=== PATIENT | male | born 1970 | race Caucasian/White ===

== ENCOUNTER 2019-08-28 08:42 | Emergency (ER) | payer OTHER ==
[~2019-08-28] VITALS: Ht 180.3 cm; Wt 100.0 kg
[~2019-08-28 08:42] MED LIST: IBUP-1114 PO
[2019-08-28] MEDS ORDERED: PANTOPRAZOLE 40MG INJ (PROTONIX) (C9113) IV ONE (09:15)
[2019-08-28] MEDS ORDERED: NS 1,000 ML IV ONE ×2 (09:15→10:30)
[2019-08-28] MEDS ORDERED: METOCLOPRAMIDE INJ 10MG/2ML VIAL (J2765) IV ONE (09:15)
[2019-08-28 09:29] LABS: BASO # 0.1 10^3/uL (0.0-0.2); BASO % 0.4 % (0.0-1.0); EOS # 0.1 10^3/uL (0.0-0.5); EOS % 0.8 % (0.0-3.0); HEMATOCRIT 45.2 % (42.0-52.0); HEMOGLOBIN 15.4 g/dl (13.5-17.5); LYMPH # 1.5 10^3/uL (1.5-5.0); LYMPH % 11.7 % (24.0-44.0); MEAN CORPUSCULAR HEMOGLOBIN 30.6 pg (27.0-33.0); MEAN CORPUSCULAR HGB CONC 34.1 g/dl (32.0-36.5); MEAN CORPUSCULAR VOLUME 89.9 fl (80.0-96.0); MONO # 0.5 10^3/uL (0.0-0.8); MONO % 3.6 % (0.0-5.0); NEUTROPHILS # 10.6 10^3/uL (1.5-8.5); NEUTROPHILS % 82.8 % (36.0-66.0); PLATELET COUNT, AUTOMATED 288 10^3/uL (150-450); RED BLOOD COUNT 5.03 10^6/uL (4.30-6.10); WHITE BLOOD COUNT 12.8 10^3/uL (4.0-10.0)
[2019-08-28 09:58] LABS: ALBUMIN 4.3 GM/DL (3.2-5.2); BILIRUBIN,DIRECT 0.1 MG/DL (0.0-0.2); BILIRUBIN,TOTAL 0.5 MG/DL (0.2-1.0); TOTAL PROTEIN 8.3 GM/DL (6.4-8.2)
[2019-08-28] MEDS ORDERED: ISOVUE-370 76% 100ML VIAL (Q9967) As Ordered ONE (10:47)
--- NOTE | 2019-08-28 11:19 | REP ---
CT abdomen and pelvis with IV contrast, without bowel contrast for abdominal pain: There are no comparisons. The visualized lung britt are unremarkable. The hepatic parenchyma is unremarkable. The gallbladder is unremarkable. The pancreas and spleen are unremarkable. The adrenals are unremarkable. Kidneys are unremarkable. The abdominal aorta is unremarkable. There is no periaortic adenopathy or mass. There is wall thickening of the transverse colon, descending colon and sigmoid colon, nonspecific, but compatible with colitis in the appropriate clinical setting. There is no bowel distension or obstruction. The mesentery is unremarkable. Pelvis: The appendix is unremarkable. The bladder is unremarkable. There is no adenopathy or ascites. Impression: Wall thickening of the colon, nonspecific, but compatible with colitis in the appropriate clinical setting. Otherwise, negative CT of the abdomen and pelvis. Electronically Signed by Gurmeet James MD 08/28/2019 11:10 A
[2019-08-28] MEDS ORDERED: PROMETHAZINE INJ 25 MG/ML VIAL (J2550) IV ONE (13:15)
[2019-08-28] MEDS ORDERED: ONDA4TAB6 PO (15:36)
[2019-08-28 15:45] VITALS: BP 112/65
--- NOTE | 2019-08-29 13:15 | ECGEPIP ---
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
== END 2019-08-28 15:52 | disposition home or self-care (01) ==
LOC: M ED 08:42 → EDBD 08:42 → M ED 15:52
DX: K52.9 Noninfective gastroenteritis and colitis, unspecified (principal); R10.13 Epigastric pain
CPT/HCPCS: 36415; 74177; 80047; 80076; 83605; 83690; 85025; 93005; 93041; 96361; 96374; 96375; 99285; C9113; J2765; Q9967